=== PATIENT | female | born 1940 ===

== ENCOUNTER 2024-12-15 12:30 | Inpatient (IN) | payer OTHER ==
[~2024-12-15] VITALS: Ht 152.4 cm; Wt 66.7 kg
[2024-12-15] MEDS ORDERED: AMLODIPINE-OLM1 EAC2 (14:02)
[2024-12-15] MEDS ORDERED: VALSARTAN80 MG PO (14:02)
[2024-12-15] MEDS ORDERED: CLARITIN5 MG/5 ML (14:03)
[2024-12-15] MEDS ORDERED: LEVOTHYROXINE25 MCG PO (14:03)
[2024-12-15] MEDS ORDERED: FLUOROMETHOLONE5 ML (14:04)
[2024-12-15 14:35] VITALS: BP 149/85
[2024-12-21] MEDS ORDERED: DEXAMETHASONE SODIUM PHOSPHATE 4 MG/ML VIAL IV SCH (15:15)
[2024-12-21] MEDS ORDERED: BACITRACIN 28.35 GM OINT.TUBE TOP SCH (15:15)
[2024-12-21] MEDS ORDERED: CHLORHEXIDINE GLUCONATE 120 ML BOTTLE TOP SCH (15:15)
[2024-12-21] MEDS ORDERED: CEFAZOLIN SODIUM 1,000 MG VIAL IV SCH (15:15)
[2024-12-21] MEDS ORDERED: ENALAPRILAT DIHYDRATE 1.25 MG/ML VIAL IV PRN (15:30)
[2024-12-21] MEDS ORDERED: ONDANSETRON HCL 2 MG/ML VIAL IV PRN (15:30)
[2024-12-21] MEDS ORDERED: MORPHINE SULFATE 4 MG/ML VIAL IV ONE ×2 (16:45→20:45)
[2024-12-21] MEDS ORDERED: ACETAMINOPHEN 500 MG GEL..CAP PO SCH (17:00)
[2024-12-21] MEDS ORDERED: TRAMADOL HCL 50 MG TABLET PO SCH (17:00)
[2024-12-21] MEDS ORDERED: CYCLOBENZAPRINE HCL 5 MG TABLET PO SCH (17:00)
[2024-12-21] MEDS ORDERED: Calcium Carbonate 1 TAB TABLET PO SCH (21:00)
[2024-12-21] MEDS ORDERED: PANTOPRAZOLE SODIUM 40 MG/VIAL VIAL IV PUSH SCH (21:00)
[2024-12-22 00:37] VITALS: BP 164/78; O2SAT 95
[2024-12-22 02:00] VITALS: BP 149/76
[2024-12-22] MEDS ORDERED: LEVOTHYROXINE SODIUM 25 MCG TABLET PO SCH (06:00)
[2024-12-22 08:00] VITALS: BP 135/79; O2SAT 95
[2024-12-22] MEDS ORDERED: AMLODIPINE BESYLATE 5 MG TABLET PO SCH (09:00)
[2024-12-22 16:19] VITALS: BP 108/66; O2SAT 98
== END 2024-12-22 16:26 | disposition home or self-care (01) | DRG 627 ==
LOC: O/R 12-21 09:39 → SURH 12-21 11:00 → O/R 12-21 16:26 → SURG 12-21 17:05
PROVIDERS: ADMIT Surgery; ATTEND Surgery
PROC: 0GTH0ZZ Resection of Right Thyroid Gland Lobe, Open Approach (ICD-10-PCS; principal; 2024-12-21 11:00)
DX: C73 Malignant neoplasm of thyroid gland (principal); E04.1 Nontoxic single thyroid nodule